=== PATIENT | female | born 1985 | race Caucasian/White ===

== ENCOUNTER → 2016-12-29 | Day surgery (SDC) | payer OTHER ==
[~2016-12-29] MED LIST: FLON0.053; KETOROLAC TROMETHAMINE 30 MG/ML (IVP) VIAL IV PUSH ONE; LACTATED RINGER'S 1000 ML INJ 1,000 ML ONE; LIDOCAINE 1%/EPINEPHrine 1:100,000 SOLN 20 ML VIAL ONE; METHYLERGONOVINE MALEATE 0.2 MG/ML VIAL ONE; MIDAZOLAM HCL 2 MG/2 ML VIAL ONE; ONDANSETRON HCL 4 MG/2 ML VIAL IV PUSH ONE; PERC5TAB12 PO; PRENCAP6 PO; PROPOFOL 200 MG/20 ML AMP IV ONE; SYNT125T PO; VITATAB25 PO; ceFAZolin INJ 1,000 MG VIAL ONE
--- NOTE | 2016-12-31 17:46 | MP ---
cc: BILL LLANES M.D. DATE OF SURGERY: 12/29/2016. PREOPERATIVE DIAGNOSIS: Missed miscarriage at nine weeks. POSTOPERATIVE DIAGNOSIS: 1. Missed miscarriage at nine weeks. 2. Postop day #0. OPERATIVE PROCEDURE PERFORMED: 1. Examination under anesthesia. 2. Cervical dilation and endometrial curettage with suction. SURGEON: Bill Llanes MD. TYPE OF ANESTHESIA: General using LMA. COMPLICATIONS: None. COUNTS: Sponge, needle and instrument counts were correct x2 at the conclusion of the procedure. ESTIMATED BLOOD LOSS: 50 mL. IV FLUIDS: 500 mL crystalloid. URINE OUTPUT: 50 mL clear urine drained by in and out catheter at the beginning of the procedure using sterile technique. SPECIMEN: Products of conception. INTRAOPERATIVE FINDINGS: Normal external female genitalia. The cervix was long, closed posterior. The uterus was approximately 10 weeks size. The uterus sounded to 10 cm and products of conception were visualized on suction tubing during the procedure. INDICATIONS FOR THE PROCEDURE: Anamaria Haley is a 31-year-old 2, now para 1-0-1-1 who was seen and evaluated earlier in the week for a new OB visit. Based on her last menstrual, she should have been greater than 11 weeks gestation but on ultrasound was only measuring 9-1/2 weeks with no cardiac activity. The patient desired expectant management with repeat ultrasound. When she came back in the office today, there was no progression of growth, still no cardiac activity and confirmation of missed miscarriage. As such the patient desired surgical intervention. DESCRIPTION OF THE PROCEDURE IN DETAIL: After reviewing the informed consent, the patient was taken to the operating suite where a time-out was performed to identify the patient, planned procedure and any known allergies to drugs or drug products. The patient was then placed in the dorsal supine position and general anesthesia using LMA was administered without difficulty and found to be adequate. The patient was then gently elevated into high lithotomy position in candy cane stirrups and exam under anesthesia was performed with results as listed above. The perineum and vagina were prepped and draped in normal sterile fashion. Sterile red rubber catheter was used to drain the bladder. A sterile speculum was then placed vaginally and the cervix was visualized, grasped on the anterior lip with a single-tooth tenaculum. A paracervical block was then performed with 1% lidocaine with epinephrine. The uterus was then sounded to 10 cm. Using a progression of cervical dilators, the cervix was dilated to accommodate a #8-Hungarian suction curette. Suction curette was introduced and rotated multiple times until clearance of all intrauterine contents was suspected. Suction was then removed. Sharp curettage was performed until good cry was felt in all areas. The suction curette was then reintroduced and additional pass was taken with no additional products noted. The suction was then removed as was the tenaculum and the speculum. The procedure concluded at this point. The patient tolerated the procedure well without complication. DISPOSITION The patient will be discharged to home today. She has office followup and she is aware of bleeding and febrile precautions. MD KATIANA Jones/AFSHAN /1:58 PM /5:41 PM AYAKA
== END | disposition home or self-care (01) ==
LOC: ESDC 12:13
PROVIDERS: ATTEND Obstetrics & Gynecology
DX: O02.1 Missed abortion (principal)
CPT/HCPCS: 01965; 59820; 88305; J0690; J1885; J2250; J2405; J3010; J7120; J2210

== ENCOUNTER 2018-01-17 06:26 | Inpatient (IN) ==
[2018-01-17] MEDS ORDERED: Sod Chloride 0.9% Inj 1,000 ML IV.CONT PRN (06:58)
[2018-01-17] MEDS ORDERED: fentaNYL Citrate Inj 100 MCG/2 ML Ampul IV.PUSH PRN ×2 (06:58)
[2018-01-17] MEDS ORDERED: Sodium Chlor 0.9% Inj 500 ML IV.SIG PRN (06:58)
[2018-01-17] MEDS ORDERED: Oxytocin 30 Units/500ml Premix 30 UNITS/500 ML BAG IV.SIG ONE (06:58)
[2018-01-17] MEDS ORDERED: Naloxone Inj 0.4 MG/ML Vial IV.PUSH PRN ×2 (06:58→21:16)
[2018-01-17] MEDS ORDERED: Citric Acid/Sodium Citrate Liq 30 ML UDC PO SCH (07:00)
[2018-01-17 08:03] LABS: Baso % (Auto) 0.3 % (0.0-2.0); Eos # (Auto) 0.1 th/mm3 (0.0-0.4); Eos % (Auto) 1.6 % (0.0-4.0); Hematocrit 38.2 % (35.0-46.0); Lymph % (Auto) 20.9 % (9.0-44.0); Mean Corpuscular Hemoglobin 30.2 pg (27.0-34.0); Mean Corpuscular Volume 88.7 fL (80.0-100.0); Mean Platelet Volume 9.5 fL (7.0-11.0); Mono # (Auto) 0.8 th/mm3 (0.0-0.9); Neut # (Auto) 6.6 th/mm3 (1.8-7.7); Neut % (Auto) 69.2 % (16.0-70.0); Platelet Count 157 th/mm3 (150-450); Red Blood Count 4.31 mil/mm3 (4.00-5.30); Red Cell Distribution Width 13.8 % (11.6-17.2); White Blood Count 9.5 th/mm3 (4.0-11.0)
[2018-01-17 08:07] LABS: Bacteria,Urine Rare /hpf; Bilirubin,Urine Negative (Negative); Clarity,Urine Clear (Clear); Color,Urine Yellow (Yellw/Straw); Glucose,Urine (UA) Negative (Negative); Leukocyte Esterase,Urine Trace (Negative); Nitrite,Urine Negative (Negative); Specific Gravity,Urine 1.006 (1.002-1.035); Squamous Epithelial Cell,Urine 1 /hpf (0-5); Transitional Epi Cells,Urine <1 /hpf
[2018-01-17 08:10] LABS: Amphetamine Urine With Conf Neg (Neg); Benzodiazepine Urine With Conf Neg (Neg)
--- NOTE | 2018-01-17 08:28 | P.HPOB ---
History of Present Illness Service: Obstetrics Primary Care Physician: UNKNOWN Chief Complaint: postdates labor induction History of Present Illness: 32 yo with EDC 01/08/18 by LMP c/w 1st trimester sonogram, admitted for scheduled postdates labor induction at 41w2d. Pt c/o mild irregular contractions, pain 1/10, good movement, no VB or LOF. Weeks Gestation:: 41 Para: 1 : 3 Total # of Miscarriage(s): 1 - Inpatient Certification I certify that the inpatient services were ordered in accordance with Medicare regulations governing the order. This includes certification that hospital inpatient services are reasonable and necessary and in the case of services not specified as inpatient-only under 42 CFR 419.22(n), that they are appropriately provided as inpatient services in accordance to with the 2-midnight benchmark under 43 CFR 412.3(e) Estimated Total Length of Stay (Days): 4 Plans for Post Hospital Care: Home Review of Systems All other systems reviewed negative except as stated in HPI [facility] - Medical History Medical History: Medical History (Last Updated 01/17/18 @ 08:24 by Peggy Llanes MD) H/O wisdom tooth extraction Hypothyroid - Surgical History Surgical History: Surgical History (Last Updated 01/17/18 @ 08:24 by Peggy Llanes MD) H/O dilation and curettage - Family History Family History: Family History (Last Updated 01/17/18 @ 08:24 by Peggy Llanes MD) Other No significant family history - Tobacco History Second Hand Smoke Exposure: No Tobacco Use In Past 30 Days: No Smoking Status: Never smoker - Alcohol History How Often Do You Have a Drink Containing Alcohol: Never - Substance Use History Substance History: No History of Abuse - Travel History History of Recent Travel: No Recent Travel in the [place] Within the Last 8 Weeks: No Recent Travel Out of the Country Within the Last 8 Weeks: No Medications and Allergies Active Medications: Active Medications Citric Acid/Sodium Citrate (Sodium Citrate/Citric Acid Liq) 30 ml PO [employer] NATE Stop: 01/21/18 06:59 Fentanyl Citrate (Fentanyl Inj) 50 mcg IV.PUSH Q1H PRN PRN Reason: Pain Scale 3 - 5 Fentanyl Citrate (Fentanyl Inj) 100 mcg IV.PUSH Q1H PRN PRN Reason: PAIN SCALE 6 TO 10 Lactated Ringer's (Lr 1000 Ml Inj) 1,000 mls @ 125 mls/hr IV.CONT .Q8H NATE Lactated Ringer's (Lr 1000 Ml Inj) 1,000 mls @ 3,000 mls/hr IV.SIG UNSCH PRN PRN Reason: compromise or epidural Sodium Chloride (Ns Inj) 500 mls @ 1,000 mls/hr IV.SIG UNSCH PRN PRN Reason: SEE LABEL COMMENTS Sodium Chloride (Ns Inj) 1,000 mls @ 100 mls/hr IV.CONT .Q10H PRN PRN Reason: SEE LABEL COMMENTS Levothyroxine Sodium (Synthroid) 125 mcg PO DAILY@0600 NATE Lidocaine HCl (Xylocaine 1% Inj) 0.1 ml I-DERMAL PRN PRN PRN Reason: For IV start Stop: 01/20/18 06:57 Lidocaine HCl (Xylocaine 1% Inj) 10 ml INFILTRATN PRN PRN PRN Reason: For episiotomy repair Stop: 01/19/18 06:57 Mineral Oil (Muri-Lube Oil) 10 ml TOPICAL PRN PRN PRN Reason: PRN perineal massage Naloxone HCl (Narcan Inj) 0.1 mg IV.PUSH Q2M PRN PRN Reason: for opiate reversal Ondansetron HCl (Zofran Inj) 4 mg IV.PUSH Q6H PRN PRN Reason: NAUSEA OR VOMITING Sodium Chloride (Ns Flush) 2 ml IV.FLUSH BID NATE Sodium Chloride (Ns Flush) 2 ml IV.FLUSH PRN PRN PRN Reason: FLUSH AFTER USING IV ACCESS Allergies Allergy/AdvReac Type Severity Reaction Status Date / Time No Known Allergies Allergy Uncoded 04/21/14 16:14 Home Medications Medication Instructions Recorded Confirmed Type levothyroxine [Synthroid] 125 mcg PO DAILY 01/17/18 01/17/18 History Exam Vital signs: Vital Signs 01/17/18 07:03 Pulse Rate 86 Respiratory Rate 18 Blood Pressure 122/74 Intake & Output 01/16/18 01/17/18 01/17/18 18:59 06:59 18:59 Weight 76.204 kg - Constitutional no acute distress - Routine HEENT Exam Head: Present: normocephalic, atraumatic Eye: Present: EOMI ENT: Present: mucous membranes moist - Routine Neck Exam Present: supple, full ROM - Routine Chest/Breast/Axilla Exam Chest wall: Absent: tenderness, mass - Routine Respiratory Exam Present: CTA bilaterally. Absent: accessory muscle use - Routine Cardiovascular Exam Present: RRR. Absent: tachycardia - Routine Abdominal Exam Present: normoactive bowel sounds. Absent: tenderness Comments: gravid c/w dates; movement palpable & visible through anterior abdominal wall - Routine Exam Comments: 1-50/-3 on SVE - Routine Extremities Exam Absent: cyanosis, clubbing, edema - Routine Skin Exam Present: intact. Absent: cyanosis - Routine Neurological Exam Present: alert, oriented X3 Results - Labs CBC & Chem 7: 01/17/18 07:20 Labs: Laboratory Results - last 24 hr 01/17/18 01/17/18 01/17/18 07:20 07:20 07:20 WBC 9.5 RBC 4.31 Hgb 13.0 Hct 38.2 MCV 88.7 MCH 30.2 MCHC 34.0 RDW 13.8 Plt Count 157 MPV 9.5 Neut % (Auto) 69.2 Lymph % (Auto) 20.9 [place] % (Auto) 8.0 Eos % (Auto) 1.6 Baso % (Auto) 0.3 Neut # (Auto) 6.6 Lymph # (Auto) 2.0 [place] # (Auto) 0.8 Eos # (Auto) 0.1 Baso # (Auto) 0.0 WBC Differential . Differential Comment Auto diff final Urine Color Yellow Urine Clarity Clear Urine pH 7.0 Ur Specific [place] 1.006 Urine Protein Negative Urine Glucose (UA) Negative Urine Ketones Negative Urine Occult Blood Negative Urine Nitrate Negative Urine Bilirubin Negative Urine Urobilinogen Less than 2 Ur Leukocyte Esterase Trace H Urine RBC 1 Urine WBC Less than 1 Ur Squamous Epith Cells 1 Ur Transition Epith Cell <1 Urine Bacteria Rare H Micro UA Comment Culture not ind Urine Culture Comments Culture not ind Urine Opiates Screen Neg Ur Barbiturates Screen Neg Ur Amphetamine Screen Neg U Benzodiazepines Scrn Neg Urine Cocaine Screen Neg U Cannabinoids Screen Neg Group B Strep: Negative Caprini VTE Risk Assessment Caprini VTE Risk Assessment: No/Low Risk (score <= 1) VTE Pharmacological Exception Reason: Epidural catheter Caprini Risk Assessment Model: Point Value = 1 Point Value = 2 Point Value = 3 Point Value = 5 Age 41-60 Minor surgery BMI > 25 kg/m2 Swollen legs Varicose veins or History of unexplained or recurrent spontaneous Oral contraceptives or hormone replacement Sepsis (< 1 month) Serious lung disease, including pneumonia (< 1 month) Abnormal pulmonary function Acute myocardial infarction Congestive heart failure (< 1 month) History of inflammatory bowel disease Medical patient at bed rest Age 61-74 Arthroscopic surgery Major open surgery (> 45 min) Laparoscopic surgery (> 45 min) Malignancy Confined to bed (> 72 hours) Immobilizing plaster cast Central venous access Age >= 75 History of VTE Family history of VTE Factor V Leiden Prothrombin [id number] Lupus anticoagulant Anticardiolipin antibodies Elevated serum homocysteine Heparin-induced thrombocytopenia Other congenital or acquired thrombophilia Stroke (< 1 month) Elective arthroplasty Hip, pelvis, or leg fracture Acute spinal cord injury (< 1 month) Prophylaxis Regimen: Total Risk Factor Score Risk Level Prophylaxis Regimen 0-1 Low Early ambulation 2 Moderate Order ONE of the following: *Sequential Compression Device (SCD) *Heparin 5000 units SQ BID 3-4 Higher Order ONE of the following medications: *Heparin 5000 units SQ TID *Enoxaparin/Lovenox 40 mg SQ daily (WT < 150 kg, CrCl > 30 mL/min) *Enoxaparin/Lovenox 30 mg SQ daily (WT < 150 kg, CrCl > 10-29 mL/min) *Enoxaparin/Lovenox 30 mg SQ BID (WT < 150 kg, CrCl > 30 mL/min) AND/OR *Sequential Compression Device (SCD) 5 or more Highest Order ONE of the following medications: *Heparin 5000 units SQ TID (Preferred with Epidurals) *Enoxaparin/Lovenox 40 mg SQ daily (WT < 150 kg, CrCl > 30 mL/min) *Enoxaparin/Lovenox 30 mg SQ daily (WT < 150 kg, CrCl > 10-29 mL/min) *Enoxaparin/Lovenox 30 mg SQ BID (WT < 150 kg, CrCl > 30 mL/min) AND *Sequential Compression Device (SCD) Assessment and Plan - Diagnosis (1) Post-dates Code(s): O48.0 - Post-term Status: Acute - Plan 32 yo with cooper IUP at 41w2d admit for postdates labor induction 1) postdates induction: pt did well with cervidil induction with first , due to unfavorable Resendiz's score placed cervidil at 8a today; will eval for addt'l induction interventions as necessary 2) GBS neg 3) status: vertex, female, Cat I tracing currently, EFW <8# Discharge Plannin-3d PP (1) Post-dates Qualifiers: Post-term type: 40-42 weeks gestation Qualified Code(s): O48.0 - Post-term
--- NOTE | 2018-01-17 15:40 | P.OBGPN ---
to bedside to evaluate pt; cervidil in place for approx 8 hours and minimal change in contractions/pressure; insert removed, SVE 2-3//2; more midposition than prior, soft; AROM'd clear, will order pitocin to start in 30 min; Cat I tracing, anticipate .
[2018-01-17] MEDS ORDERED: Measles/Mumps/Rubella Vaccine Inj 0.5 ML Vial SQ ONE (16:00)
[2018-01-17] MEDS ORDERED: Diphtheria/Tetanus/Pertussis Vaccine Inj 0.5 ML Syringe IM ONE (16:00)
[2018-01-17] MEDS ORDERED: Oxytocin 30 Units/500ml Premix 30 UNITS/500 ML BAG IV.SIG PRN (16:00)
[2018-01-17] MEDS ORDERED: Oxytocin 30 Units/500ml Premix 30 UNITS/500 ML BAG ONE (16:24)
[2018-01-17] MEDS ORDERED: fentaNYL 2MCG-Bupiv 0.125% Epi 150 ML EPIDURAL ONE (18:22)
[2018-01-17] MEDS ORDERED: Witch Hazel 50%/Glyderin 12.5% 40 Pad Jar RECTAL PRN (21:16)
[2018-01-17] MEDS ORDERED: Zolpidem Tartrate 5 MG Tablet PO PRN (21:16)
[2018-01-17] MEDS ORDERED: Bisacodyl 10 MG Supp RECTAL PRN (21:16)
[2018-01-17] MEDS ORDERED: Benzocaine 20% Top Spray 60 ML Can TOPICAL PRN (21:16)
[2018-01-17] MEDS ORDERED: Acetaminophen 325 MG Tablet PO PRN (21:16)
--- NOTE | 2018-01-17 21:20 | P.OBDELI ---
Weeks Gestation: 41 Patient Started Active Labor: Yes Anesthesia: Epidural Episiotomy: none Vaginal Delivery: Normal Presentation: Occiput anterior Nuchal Cord: None Delayed Cord Clamping (45 sec): Yes Placenta: Spontaneous delivery, Intact, 3 vessel cord Laceration: Perineal, 2 deg Repair: Chromic running Estimated blood loss (mL): 200 : Female Infant Female A Infant Delivery Date: 01/17/18 Delivery Time: 21:00 score (1 min): 8 score (5 min): 8
[2018-01-17] MEDS ORDERED: Oxytocin 30 Units/500ml Premix 30 UNITS/500 ML BAG IV.CONT SCH (21:30)
[2018-01-17] MEDS: Ibuprofen 400 MG Tablet PO PRN (23:31)
[2018-01-18] MEDS: Levothyroxine 125 MCG Tablet PO SCH ×2 (00:08→09:00)
[2018-01-18] MEDS: Ibuprofen 400 MG Tablet PO PRN ×2 (06:36→14:00)
--- NOTE | 2018-01-18 07:53 | P.PNOB ---
Subjective Post day: 1 Interval history: no complaints, , bleeding minimal Objective Vital Signs/I&O: Vital Signs 01/17/18 08:55 01/17/18 09:00 01/17/18 11:00 Temperature 98.5 F 98.5 F Pulse Rate 73 83 Respiratory Rate 16 18 Blood Pressure 120/79 116/64 01/17/18 13:00 01/17/18 15:00 01/17/18 17:10 Temperature Pulse Rate 72 95 H Respiratory Rate 16 17 Blood Pressure 122/74 125/90 01/17/18 17:30 01/17/18 18:00 01/17/18 18:36 Temperature 98.0 F Pulse Rate 67 Respiratory Rate 18 17 Blood Pressure 141/73 H 01/17/18 18:40 01/17/18 18:46 01/17/18 18:50 Temperature Pulse Rate 71 75 Respiratory Rate 18 Blood Pressure 134/79 145/57 H 01/17/18 18:51 01/17/18 18:55 01/17/18 19:20 Temperature Pulse Rate 68 72 70 Respiratory Rate Blood Pressure 112/87 115/57 L 119/66 01/17/18 19:27 01/17/18 19:45 01/17/18 20:00 Temperature 98.7 F Pulse Rate 69 Respiratory Rate 18 18 Blood Pressure 101/58 L 01/17/18 20:15 01/17/18 20:30 01/17/18 20:45 Temperature Pulse Rate 66 83 71 Respiratory Rate 20 20 Blood Pressure 127/74 118/76 01/17/18 21:20 01/17/18 21:31 01/17/18 21:35 Temperature 98.8 F Pulse Rate 75 Respiratory Rate 18 18 Blood Pressure 128/70 01/17/18 21:46 01/17/18 21:48 01/17/18 21:52 Temperature Pulse Rate 72 Respiratory Rate 18 18 Blood Pressure 107/76 01/18/18 00:00 01/18/18 04:00 01/18/18 06:35 Temperature 98.4 F Pulse Rate 63 Respiratory Rate 18 18 18 Blood Pressure 116/59 L Result Diagrams: 01/17/18 07:20 Objective Remarks: GENERAL: Well-nourished, well-developed patient. CARDIOVASCULAR: Regular rate and rhythm without murmurs, gallops, or rubs. RESPIRATORY: Breath sounds equal bilaterally. No accessory muscle use. ABDOMEN/GI: Abdomen soft, non-tender. Fundus: Firm, non-tender at umbilicus. GENITOURINARY: Light to moderate bleeding. EXTREMITIES: No cyanosis or edema, non-tender, without signs of DVT. Medications and IVs: Active Medications Acetaminophen (Tylenol) 650 mg PO Q4H PRN PRN Reason: PAIN SCALE 1 TO 2 Al Hydroxide/Mg Hydroxide (Milk Of Magnesia Liq) 30 ml PO Q12H PRN PRN Reason: Mild Constipation Benzocaine (Americaine 20% [place]) 1 spray TOPICAL Q4H PRN PRN Reason: For Perineum Discomfort Last Admin: 01/18/18 00:12 Dose: 1 spray Bisacodyl (Dulcolax Supp) 10 mg RECTAL DAILY PRN PRN Reason: SEVERE CONSITIPATION Oxytocin (Pitocin 30 Units/Ns 500 Ml Premix) 30 units in 500 mls @ 2 mls/hr IV.SIG TITRATE PRN; Protocol PRN Reason: For induction of labor Last Admin: 01/17/18 17:09 Dose: 2 milliunit/min, 2 mls/hr Ibuprofen (Motrin) 800 mg PO Q8H PRN PRN Reason: For cramping Last Admin: 01/18/18 06:36 Dose: 800 mg Lactulose (Lactulose Liq) 30 ml PO DAILY PRN PRN Reason: SEVERE CONSITIPATION Levothyroxine Sodium (Synthroid) 125 mcg PO DAILY@0600 NATE Last Admin: 01/18/18 00:08 Dose: Not Given Naloxone HCl (Narcan Inj) 0.1 mg IV.PUSH Q2M PRN PRN Reason: for opiate reversal Ondansetron HCl (Zofran Odt) 4 mg PO Q6H PRN PRN Reason: NAUSEA OR VOMITING Oxycodone/Acetaminophen (Percocet 5/325 Mg) 1 tab PO Q4H PRN PRN Reason: PAIN SCALE 3 TO 5 Oxycodone/Acetaminophen (Percocet 5/325 Mg) 2 tab PO Q4H PRN PRN Reason: PAIN SCALE 6 TO 10 Vit/Calcium/Iron/Folic Ac (Stuartnatal Plus 3) 1 tab PO DAILY [facility] Senna/Docusate Sodium (Daphne-Colace) 1 tab PO BID [facility] Sennosides (Senokot) 17.2 mg PO Q12H PRN PRN Reason: Moderate Constipation Sodium Chloride (Ns Flush) 2 ml IV.FLUSH BID NATE Last Admin: 01/17/18 23:24 Dose: Not Given Sodium Chloride (Ns Flush) 2 ml IV.FLUSH PRN PRN PRN Reason: FLUSH AFTER USING IV ACCESS Sodium Chloride (Ns Flush) 2 ml IV.FLUSH BID NATE Sodium Chloride (Ns Flush) 2 ml IV.FLUSH PRN PRN PRN Reason: FLUSH AFTER USING IV ACCESS Witch Madhavi/Glycerin (Tucks Pads) 1 applicatio RECTAL QID PRN PRN Reason: HEMORRHOIDS Last Admin: 01/18/18 00:10 Dose: 1 applicatio Zolpidem Tartrate (Ambien) 5 mg PO HS PRN PRN Reason: SLEEP Assessment and Plan - Diagnosis (1) Post-dates Code(s): O48.0 - Post-term Status: Acute (2) Vaginal delivery Code(s): Z98.890 - Other specified postprocedural states Status: Acute - Plan 32 yo with cooper IUP at 41w2d admit for postdates labor induction s/p PPD #1 , doing well, female d/c home in am Discharge Plannin-3d PP - Attending Attestation pt seen by me (1) Post-dates Qualifiers: Post-term type: 40-42 weeks gestation Qualified Code(s): O48.0 - Post-term
[2018-01-18] MEDS: Prenatal Vit/Ca/Iron/Folic Acid Tablet PO SCH (10:08)
[2018-01-18] MEDS: Senna/Docusate Sodium 8.6/50 MG Tablet PO SCH (10:09)
[2018-01-19] MEDS: Ibuprofen 400 MG Tablet PO PRN ×2 (01:19→10:04)
[2018-01-19 07:47] VITALS: BP 120/76; PULSE 67
[2018-01-19 07:48] VITALS: RESP 20; TEMP 98.2
[2018-01-19] MEDS: Prenatal Vit/Ca/Iron/Folic Acid Tablet PO SCH (08:12)
[2018-01-19] MEDS: Senna/Docusate Sodium 8.6/50 MG Tablet PO SCH ×2 (08:12→11:59)
--- NOTE | 2018-01-19 10:12 | P.PNOB ---
Subjective Post day: 2 Interval history: no complaints Objective Vital Signs/I&O: Vital Signs 01/18/18 20:00 01/19/18 07:47 Temperature 98.4 F 98.2 F Pulse Rate 68 67 Respiratory Rate 16 20 Blood Pressure 107/58 L 120/76 Intake & Output 01/18/18 01/19/18 01/19/18 18:59 06:59 18:59 Intake Total 1000 / 1000 Balance 1000 / 1000 Intake: IV 1000 / 1000 Result Diagrams: 01/17/18 07:20 Objective Remarks: GENERAL: Well-nourished, well-developed patient. CARDIOVASCULAR: Regular rate and rhythm without murmurs, gallops, or rubs. RESPIRATORY: Breath sounds equal bilaterally. No accessory muscle use. ABDOMEN/GI: Abdomen soft, non-tender. Fundus: Firm, non-tender at umbilicus. GENITOURINARY: Light to moderate bleeding. EXTREMITIES: No cyanosis or edema, non-tender, without signs of DVT. Medications and IVs: Active Medications Acetaminophen (Tylenol) 650 mg PO Q4H PRN PRN Reason: PAIN SCALE 1 TO 2 Last Admin: 01/18/18 16:50 Dose: 650 mg Al Hydroxide/Mg Hydroxide (Milk Of Magnesia Liq) 30 ml PO Q12H PRN PRN Reason: Mild Constipation Benzocaine (Americaine 20% Top [place]) 1 spray TOPICAL Q4H PRN PRN Reason: For Perineum Discomfort Last Admin: 01/18/18 00:12 Dose: 1 spray Bisacodyl (Dulcolax Supp) 10 mg RECTAL DAILY PRN PRN Reason: SEVERE CONSITIPATION Oxytocin (Pitocin 30 Units/Ns 500 Ml Premix) 30 units in 500 mls @ 2 mls/hr IV.SIG TITRATE PRN; Protocol PRN Reason: For induction of labor Last Admin: 01/17/18 17:09 Dose: 2 milliunit/min, 2 mls/hr Ibuprofen (Motrin) 800 mg PO Q8H PRN PRN Reason: For cramping Last Admin: 01/19/18 10:04 Dose: 800 mg Lactulose (Lactulose Liq) 30 ml PO DAILY PRN PRN Reason: SEVERE CONSITIPATION Levothyroxine Sodium (Synthroid) 125 mcg PO DAILY@0600 NATE Last Admin: 01/18/18 09:00 Dose: Not Given Naloxone HCl (Narcan Inj) 0.1 mg IV.PUSH Q2M PRN PRN Reason: for opiate reversal Ondansetron HCl (Zofran Odt) 4 mg PO Q6H PRN PRN Reason: NAUSEA OR VOMITING Oxycodone/Acetaminophen (Percocet 5/325 Mg) 1 tab PO Q4H PRN PRN Reason: PAIN SCALE 3 TO 5 Oxycodone/Acetaminophen (Percocet 5/325 Mg) 2 tab PO Q4H PRN PRN Reason: PAIN SCALE 6 TO 10 Vit/Calcium/Iron/Folic Ac (Stuartnatal Plus 3) 1 tab PO DAILY [facility] Last Admin: 01/19/18 08:12 Dose: Not Given Senna/Docusate Sodium (Daphne-Colace) 1 tab PO BID [facility] Last Admin: 01/19/18 08:12 Dose: Not Given Sennosides (Senokot) 17.2 mg PO Q12H PRN PRN Reason: Moderate Constipation Sodium Chloride (Ns Flush) 2 ml IV.FLUSH BID [facility] Last Admin: 01/19/18 08:13 Dose: Not Given Sodium Chloride (Ns Flush) 2 ml IV.FLUSH PRN PRN PRN Reason: FLUSH AFTER USING IV ACCESS Sodium Chloride (Ns Flush) 2 ml IV.FLUSH BID [facility] Last Admin: 01/19/18 08:13 Dose: Not Given Sodium Chloride (Ns Flush) 2 ml IV.FLUSH PRN PRN PRN Reason: FLUSH AFTER USING IV ACCESS Witch Madhavi/Glycerin (Tucks Pads) 1 applicatio RECTAL QID PRN PRN Reason: HEMORRHOIDS Last Admin: 01/18/18 00:10 Dose: 1 applicatio Zolpidem Tartrate (Ambien) 5 mg PO HS PRN PRN Reason: SLEEP Assessment and Plan - Diagnosis (1) Post-dates Code(s): O48.0 - Post-term Status: Acute (2) Vaginal delivery Code(s): Z98.890 - Other specified postprocedural states Status: Acute - Plan 32 yo with cooper IUP at 41w2d admit for postdates labor induction s/p PPD #2, doing well, female d/c home today Discharge Plannin-3d PP - Attending Attestation pt seen by me (1) Post-dates Qualifiers: Post-term type: 40-42 weeks gestation Qualified Code(s): O48.0 - Post-term
[2018-01-19] MEDS: Levothyroxine 125 MCG Tablet PO SCH (11:59)
== END 2018-01-19 14:38 | disposition home or self-care (01) ==
LOC: H2E 06:26 → H1EA 23:41
PROVIDERS: ADMIT Obstetrics & Gynecology; ATTEND Obstetrics & Gynecology